=== PATIENT | female | born 1955 | race Caucasian/White ===

== ENCOUNTER → 2019-11-03 | Outpatient (CLI) | payer OTHER ==
--- NOTE | 2019-11-03 23:14 | REP ---
LEFT FOOT SERIES, FOUR VIEWS: HISTORY: Pain in the left foot. FINDINGS: There is a large plantar calcaneal spur. There is 1st metatarsophalangeal and 1st metatarsal-tarsal joint osteoarthritic spurring. There is mild osteoarthritic spurring at the remaining metatarsal-tarsal articulations. No erosive change is seen. No fracture is noted. IMPRESSION: Osteoarthritic changes and heel spurring. No acute bony abnormality. Electronically Signed by Sergio Kinney MD 11/04/2019 07:56 A
== END ==
LOC: M ADAMS 13:34
PROVIDERS: ATTEND Physician Assistant
DX: M19.072 Primary osteoarthritis, left ankle and foot (principal); M77.32 Calcaneal spur, left foot